=== PATIENT | male | born 1940 | race Caucasian/White ===

== ENCOUNTER 2017-07-26 08:57 | Day surgery (SDC) | payer MEDICARE, BC ==
[2017-07-26] MEDS ORDERED: ALLOPURINOL TAB 300 (10:11)
[2017-07-26] MEDS ORDERED: NORVASC5 MG PO (10:12)
[2017-07-26] MEDS ORDERED: ISOSORBIDE MONO30 M1 PO (10:12)
[2017-07-26] MEDS ORDERED: FENOFIBRATE160 MG PO (10:13)
[2017-07-26] MEDS ORDERED: LASIX20 MG PO (10:13)
[2017-07-26] MEDS ORDERED: ASPIRIN81 MG PO (10:14)
[2017-07-26] MEDS ORDERED: METOPROLOL TART25 MG PO (10:14)
[2017-07-26] MEDS ORDERED: ELIQUIS5 MG PO (10:14)
[2017-07-26] MEDS ORDERED: PROSCAR5 MG PO (10:15)
[2017-07-26] MEDS ORDERED: PRAVACHOL80 MG PO (10:15)
[2017-07-26] MEDS ORDERED: KLOR-CON M1515 MEQ PO (10:16)
[2017-07-26] MEDS ORDERED: FLUTICASONE PRO16 GM NASAL (10:16)
[2017-07-26] MEDS ORDERED: MUCINEX600 MG PO (10:16)
[2017-07-26] MEDS ORDERED: RANEXA1000 MG PO (10:16)
[2017-07-26] MEDS ORDERED: TRIGLIDE (10:17)
[2017-07-26] MEDS ORDERED: NOVOLOG INJ FLE (10:17)
[2017-07-26] MEDS ORDERED: LEVEMIR INJ FLE (10:17)
[2017-07-26 10:20] VITALS: BP 119/93; BMI 32.0
[2017-07-26 10:45] LABS: BASOPHILS 0.2 % (0-2); EOSINOPHILS 2.2 % (0-7); HEMATOCRIT 40.8 % (42.0-54.0); HEMOGLOBIN 12.9 g/dL (13.5-17.5); IMMATURE GRANULOCYTES 0.6 % (0-5); LYMPHOCYTES 11.7 % (15-50); MCH 32.8 pg (26.0-34.0); MCHC 31.6 g/dL (31.0-37.0); MCV 103.8 fL (80.0-100.0); MONOCYTES 4.8 % (2-11); NEUTROPHILS 80.5 % (40-80); PLATELET COUNT 267 10x3/uL (130-400); RBC 3.93 10x6/uL (4.20-6.10); RDW 14.1 % (11.5-14.5); WBC 9.1 10x3/uL (4.8-10.8)
[2017-07-26 10:56] LABS: ANION GAP 15.4 mmol/L (8-16); CALCIUM 9.1 mg/dL (8.5-10.1); CARBON DIOXIDE 27.2 mmol/L (21.0-32.0); CREATININE - SERUM 1.6 mg/dL (0.6-1.3); POTASSIUM - SERUM 4.6 mmol/L (3.5-5.1)
--- NOTE | 2017-07-26 14:40 | NUR ---
IV D/C'D CATH INTACT.
--- NOTE | 2017-07-26 14:40 | NUR ---
D/C INSTRUCTIONS EXPLAINED TO PT. VOICED UNDERSTANDING. COPIES OF ALL GIVEN TO PT.
--- NOTE | 2017-07-26 14:55 | NUR ---
D/C'D HOME VIA W/C TO PRIVATE CAR.
--- NOTE | 2017-08-04 14:40 | OP ---
PATIENT NAME: AMRITA RODRIGUES MEDICAL RECORD: [id number] :44 LOCATION:[facility] ADMISSION DATE: SURGEON: REI GOSS DO DATE OF OPERATION: 07/26/2017 PROCEDURE: Colonoscopy with polypectomy. INDICATIONS FOR PROCEDURE: Positive stool with DNA based colorectal cancer screening. SCOPE: That{img} video pediatric colonoscope. MEDICATIONS: Propofol 650 mg IV per anesthesia. WITHDRAWAL TIME: 18 minutes. ESTIMATED BLOOD LOSS: Minimal. COMPLICATIONS: None. FINDINGS: Informed consent was given. The patient was made comfortable with the above medication. After reaching an adequate level of sedation by slow IV push, the patient was placed on his left side. Digital rectal examination was performed and was normal other than some benign prostatic hyperplasia. The endoscope was then advanced under direct visualization through the rectum to the cecum with visualization of the appendiceal orifice and ileocecal valve. The scope was slowly withdrawn and the mucosa was carefully examined. The prep quality was good on the left side of the colon, but inadequate on the right side of the colon. It is possible that small lesions could have been missed. There were no large polyps or obvious masses visualized. In the ascending colon, there were 2 polyps, which were benign-appearing and sessile in nature. They measured approximately 5-7 mm in diameter. They were both removed using a hot snare in 1 piece and completely retrieved. In the transverse colon, there were 3 separate polyps, which were benign-appearing and sessile. They ranged in size from 4-9 mm in diameter. They were all removed using a hot snare in 1 piece and completely retrieved. In the descending colon, there were two benign-appearing sessile polyps, which ranged in size from 5-8 mm in diameter. They were both removed using a hot snare in 1 piece and completely retrieved. Retroflexion was performed in the rectum with visualization of small to medium sized internal hemorrhoids, which were not bleeding. The endoscope was withdrawn from the patient. The patient tolerated the procedure well and there were no complications. IMPRESSION: 1. Internal hemorrhoids. 2. Multiple polyps as described as above. All polyps were removed using a hot snare and completely retrieved. 3. Inadequate prep. PLAN AND RECOMMENDATIONS: 1. Discharge home when recovery parameters are met. 2. Follow up biopsy specimen results. 3. Recall colonoscopy in 1 year with a split prep to be performed. 4. High fiber diet. 5. Continue current medications. OPERATIVE REPORT [id number] AMRITA RODRIGUES TRANSINT:[id number] Voice Confirmation ID: [id number] DOCUMENT ID: [id number] REI GOSS DO at 1440 CC: [id number] DICTATION DATE: 07/26/17 1345 OUTREACH NURSE: 07/26/17 1415 [facility] [place] 07/26/17 [id number] [place] [address]
== END 2017-07-26 15:03 | disposition home or self-care (01) ==
LOC: D.OPS 08:57
PROVIDERS: Anesthesiology
DX: K63.5 Polyp of colon (principal); K64.8 Other hemorrhoids; I25.10 Atherosclerotic heart disease of native coronary artery without angina pectoris; I10 Essential (primary) hypertension; E11.9 Type 2 diabetes mellitus without complications; I50.9 Heart failure, unspecified; Z95.1 Presence of aortocoronary bypass graft; Z95.5 Presence of coronary angioplasty implant and graft; Z01.812 Encounter for preprocedural laboratory examination

== ENCOUNTER 2019-01-27 18:32 | Inpatient (IN) | payer MEDICARE, BC ==
[~2019-01-27] VITALS: Ht 172.7 cm; Wt 92.5 kg
[~2019-01-27 18:32] MED LIST: ALLOPURINOL TAB 300; ASPIRIN81 MG PO; ELIQUIS5 MG PO; FENOFIBRATE160 MG PO; FLUTICASONE PRO16 GM NASAL; ISOSORBIDE MONO30 M1 PO; KLOR-CON M1515 MEQ PO; LASIX20 MG PO; LEVEMIR INJ FLE; METOPROLOL TART25 MG PO; MUCINEX600 MG PO; NORVASC5 MG PO; NOVOLOG INJ FLE; PRAVACHOL80 MG PO; PROSCAR5 MG PO; RANEXA1000 MG PO; TRIGLIDE
[2019-01-27] MEDS ORDERED: LOTENSIN 10 MG10 MG PO (18:42)
[2019-01-27] MEDS ORDERED: CRESTOR20 MG PO (18:43)
[2019-01-27] MEDS ORDERED: NITROSTAT0.4 MG SL (18:43)
[2019-01-27] MEDS ORDERED: KLOR-CON 1010 MEQ PO (18:44)
[2019-01-27] MEDS ORDERED: NORVASC5 MG PO (18:44)
[2019-01-27 19:13] LABS: BASOPHILS 0.2 % (0-2); EOSINOPHILS 0.7 % (0-7); HEMATOCRIT 39.3 % (42.0-54.0); HEMOGLOBIN 12.9 g/dL (13.5-17.5); IMMATURE GRANULOCYTES 0.5 % (0-5); LYMPHOCYTES 5.8 % (15-50); MCH 33.1 pg (26.0-34.0); MCHC 32.8 g/dL (31.0-37.0); MCV 100.8 fL (80.0-100.0); MEAN PLATELET VOLUME 9.7 fL (7.4-10.4); NEUTROPHILS 87.8 % (40-80); PLATELET COUNT 272 10x3/uL (130-400); RDW 13.6 % (11.5-14.5); WBC 12.2 10x3/uL (4.8-10.8)
[2019-01-27 19:26] LABS: ALBUMIN 3.2 g/dL (3.4-5.0); ANION GAP 12.4 mmol/L (8-16); APTT 38.9 SECONDS (22.8-39.4); BILIRUBIN - TOTAL 0.56 mg/dL (0.2-1.3); CALCIUM 9.1 mg/dL (8.5-10.1); CARBON DIOXIDE 27.4 mmol/L (21.0-32.0); CREATININE - SERUM 1.7 mg/dL (0.6-1.3); INR 1.45 (0.85-1.17); POTASSIUM - SERUM 4.8 mmol/L (3.5-5.1); PROTEIN - SERUM 7.4 g/dL (6.4-8.2); PROTIME 17.1 SECONDS (11.6-15.0)
[2019-01-27 23:24] VITALS: BP 125/68; BMI 31.0
[2019-01-28 09:06] VITALS: BP 133/53
[2019-01-28 11:25] LABS: BASOPHILS 0.1 % (0-2); EOSINOPHILS 0.3 % (0-7); HEMATOCRIT 35.7 % (42.0-54.0); HEMOGLOBIN 11.8 g/dL (13.5-17.5); IMMATURE GRANULOCYTES 0.2 % (0-5); LYMPHOCYTES 5.1 % (15-50); MCH 33.1 pg (26.0-34.0); MCHC 33.1 g/dL (31.0-37.0); MCV 100.3 fL (80.0-100.0); MEAN PLATELET VOLUME 9.2 fL (7.4-10.4); MONOCYTES 4.5 % (2-11); NEUTROPHILS 89.8 % (40-80); PLATELET COUNT 230 10x3/uL (130-400); RBC 3.56 10x6/uL (4.20-6.10); RDW 13.7 % (11.5-14.5); WBC 14.6 10x3/uL (4.8-10.8)
[2019-01-28 11:38] LABS: ALBUMIN 3.1 g/dL (3.4-5.0); ANION GAP 10.7 mmol/L (8-16); BILIRUBIN - TOTAL 0.66 mg/dL (0.2-1.3); CALCIUM 8.8 mg/dL (8.5-10.1); CARBON DIOXIDE 28.3 mmol/L (21.0-32.0); CREATININE - SERUM 1.8 mg/dL (0.6-1.3); PROTEIN - SERUM 7.1 g/dL (6.4-8.2)
[2019-01-28 12:52] LABS: % SATURATION 12 % (15-55); IRON 42 ug/dl (35-150); TOTAL IRON BIND CAPACITY 335 ug/dl (260-445); UNSAT IRON BIND CAPACITY 293 ug/dl (150-375)
[2019-01-28 12:58] LABS: CKMB 1.1 U/L (0.0-3.6); CREATINE KINASE 155 UL (21-232)
[2019-01-28 13:01] LABS: TROPONIN-I < 0.017 ng/mL (0.000-0.060)
[2019-01-28 13:01] LABS: APPEARANCE CLOUDY (CLEAR); BILIRUBIN NEGATIVE (NEGATIVE); COLOR YELLOW (YELLOW); GLUCOSE 1000 mg/dL (NEGATIVE); KETONE NEGATIVE (NEGATIVE); NITRITE NEGATIVE (NEGATIVE); PROTEIN TRACE mg/dL (NEGATIVE); UROBILINOGEN NORMAL (NORMAL)
[2019-01-28 13:02] LABS: EPITHELIAL CELLS 0-5 /hpf (0-5); RED CELLS - URINE >50 /hpf (0-5); WHITE CELLS - URINE 0-5 /hpf (0-5)
[2019-01-28 15:17] VITALS: Ht 172.7 cm; Wt 92.5 kg
[2019-01-28 16:24] VITALS: BP 130/62
[2019-01-28 20:25] VITALS: BP 133/60
[2019-01-29 03:41] VITALS: BP 140/80
[2019-01-29 05:15] LABS: BASOPHILS 0.2 % (0-2); EOSINOPHILS 2.8 % (0-7); HEMATOCRIT 36.2 % (42.0-54.0); HEMOGLOBIN 11.6 g/dL (13.5-17.5); IMMATURE GRANULOCYTES 0.3 % (0-5); LYMPHOCYTES 8.1 % (15-50); MCH 32.1 pg (26.0-34.0); MCV 100.3 fL (80.0-100.0); MEAN PLATELET VOLUME 9.7 fL (7.4-10.4); MONOCYTES 7.4 % (2-11); NEUTROPHILS 81.2 % (40-80); PLATELET COUNT 239 10x3/uL (130-400); RBC 3.61 10x6/uL (4.20-6.10); RDW 13.9 % (11.5-14.5); WBC 13.1 10x3/uL (4.8-10.8)
[2019-01-29 07:43] LABS: CALC OSMOLALITY 294 mosm/kg (275-300); CARBON DIOXIDE 25.2 mmol/L (21.0-32.0); CHLORIDE - SERUM 106 mmol/L (98-107); CKMB 0.8 U/L (0.0-3.6); CREATINE KINASE 158 UL (21-232); CREATININE - SERUM 1.6 mg/dL (0.6-1.3); GLUCOSE 233 mg/dL (74-106); POTASSIUM - SERUM 4.7 mmol/L (3.5-5.1); SODIUM 140 mmol/L (136-145); UREA NITROGEN 37 mg/dL (7-18); eGFR NON AFRICAN AMERICAN 45 mL/min (90-120)
[2019-01-29 09:08] VITALS: BP 120/55
[2019-01-29 13:36] VITALS: BP 144/65
[2019-01-29 18:14] VITALS: BP 141/64
[2019-01-29 19:50] VITALS: BP 147/81
[2019-01-30 04:28] VITALS: BP 109/53
[2019-01-30 06:32] LABS: BASOPHILS 0.1 % (0-2); EOSINOPHILS 3.7 % (0-7); HEMATOCRIT 33.1 % (42.0-54.0); HEMOGLOBIN 10.6 g/dL (13.5-17.5); IMMATURE GRANULOCYTES 0.4 % (0-5); LYMPHOCYTES 9.2 % (15-50); MCH 32.6 pg (26.0-34.0); MCV 101.8 fL (80.0-100.0); MEAN PLATELET VOLUME 9.8 fL (7.4-10.4); MONOCYTES 8.9 % (2-11); NEUTROPHILS 77.7 % (40-80); PLATELET COUNT 212 10x3/uL (130-400); RBC 3.25 10x6/uL (4.20-6.10); RDW 14.2 % (11.5-14.5); WBC 10.3 10x3/uL (4.8-10.8)
[2019-01-30 06:58] LABS: CALC OSMOLALITY 298 mosm/kg (275-300); CALCIUM 8.2 mg/dL (8.5-10.1); CARBON DIOXIDE 29.3 mmol/L (21.0-32.0); CHLORIDE - SERUM 108 mmol/L (98-107); CKMB 0.6 U/L (0.0-3.6); CREATINE KINASE 89 UL (21-232); CREATININE - SERUM 1.4 mg/dL (0.6-1.3); GLUCOSE 232 mg/dL (74-106); POTASSIUM - SERUM 4.7 mmol/L (3.5-5.1); SODIUM 143 mmol/L (136-145); TROPONIN-I 0.025 ng/mL (0.000-0.060); UREA NITROGEN 31 mg/dL (7-18); eGFR NON AFRICAN AMERICAN 52 mL/min (90-120)
[2019-01-30 09:01] VITALS: BP 100/58
[2019-01-30 12:57] VITALS: BP 121/67
[2019-01-30 16:38] VITALS: BP 116/59
[2019-01-30 20:00] VITALS: BP 123/69
[2019-01-31 04:00] VITALS: BP 126/65
[2019-01-31 05:40] LABS: BASOPHILS 0.1 % (0-2); HEMOGLOBIN 10.5 g/dL (13.5-17.5); IMMATURE GRANULOCYTES 0.4 % (0-5); LYMPHOCYTES 7.7 % (15-50); MCH 32.4 pg (26.0-34.0); MCHC 31.8 g/dL (31.0-37.0); MCV 101.9 fL (80.0-100.0); MONOCYTES 5.3 % (2-11); NEUTROPHILS 83.5 % (40-80); PLATELET COUNT 210 10x3/uL (130-400); RBC 3.24 10x6/uL (4.20-6.10); WBC 11.3 10x3/uL (4.8-10.8)
[2019-01-31 05:48] LABS: ANION GAP 8.7 mmol/L (8-16); CALCIUM 8.2 mg/dL (8.5-10.1); CARBON DIOXIDE 28.8 mmol/L (21.0-32.0); CREATININE - SERUM 1.4 mg/dL (0.6-1.3); POTASSIUM - SERUM 4.5 mmol/L (3.5-5.1)
[2019-01-31 09:34] VITALS: BP 117/66
[2019-01-31 13:38] VITALS: BP 114/76
[2019-01-31 18:14] VITALS: BP 118/66
[2019-01-31 22:01] VITALS: BP 106/63
[2019-02-01 05:21] VITALS: BP 107/63
[2019-02-01 06:48] LABS: BASOPHILS 0.1 % (0-2); EOSINOPHILS 3.3 % (0-7); HEMATOCRIT 32.7 % (42.0-54.0); HEMOGLOBIN 10.5 g/dL (13.5-17.5); IMMATURE GRANULOCYTES 0.4 % (0-5); LYMPHOCYTES 8.6 % (15-50); MCH 32.5 pg (26.0-34.0); MCHC 32.1 g/dL (31.0-37.0); MCV 101.2 fL (80.0-100.0); MEAN PLATELET VOLUME 9.9 fL (7.4-10.4); MONOCYTES 5.7 % (2-11); NEUTROPHILS 81.9 % (40-80); PLATELET COUNT 237 10x3/uL (130-400); RBC 3.23 10x6/uL (4.20-6.10); RDW 13.9 % (11.5-14.5); WBC 10.3 10x3/uL (4.8-10.8)
[2019-02-01 07:07] LABS: ANION GAP 10.9 mmol/L (8-16); CALCIUM 8.5 mg/dL (8.5-10.1); CARBON DIOXIDE 28.6 mmol/L (21.0-32.0); CREATININE - SERUM 1.2 mg/dL (0.6-1.3); POTASSIUM - SERUM 4.5 mmol/L (3.5-5.1)
[2019-02-01 09:37] VITALS: BP 110/73
[2019-02-01 14:03] VITALS: BP 140/84
--- NOTE | 2019-02-01 14:39 | CN ---
PATIENT NAME:AMRITA MILLS MEDICAL RECORD: [id number] : 44 LOCATION:[facility] [address] ADMIT DATE: 01/28/19 ACCOUNT: [id number] CONSULTING PHYSICIAN: CONOR JOSE MD REFERRING PHYSICIAN: PEGGY BETANCOURT MD DATE OF CONSULTATION: 01/29/2019 CARDIOLOGY CONSULT DIAGNOSES: 1. Syncope. 2. Coronary artery disease. 3. Previous PTCA and stent in [place]. 4. Cardiomyopathy. 5. Atrial fibrillation. 6. Anticoagulation with Eliquis. 7. Hypertension. 8. Orthostasis. HISTORY: Mr. Mills has been having episodes where he fell out. He fell down a flight of stairs on this admission. 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 He has had no anginal symptomatology. He has a history of atrial fibrillation; however, he has maintained sinus rhythm now. He was on Eliquis for the atrial fibrillation. We did an echocardiogram. His ejection fraction is in the 35% range with left atrial enlargement. Most likely, this is not new. He thinks that he has been told that his heart function is decreased in the past. He is not having heart failure symptomatology and not having any anginal symptomatology. PHYSICAL EXAMINATION: GENERAL APPEARANCE: Well-nourished, well-developed, appears stated age. Level of distress, comfortable. PSYCHIATRIC: Mental status, alert, normal affect. Orientation, oriented to time, place and person. EYES: Lids and conjunctiva, noninjected. No discharge, no pallor. ENT: Lips, teeth, gums, normal dentition. Oropharynx, no cyanosis, no pallor. NECK: Carotid arteries, bilateral normal upstroke, no bruits, no thrills. JUGULAR VEINS: No jugular venous pressure or distention. CERVICAL LYMPH NODES: Nontender, nonenlarged. THYROID: Not enlarged. Nontender. No nodules. LUNGS: Respiratory effort, unlabored. CHEST: Normal curvature. No thoracic deformity. No chest wall tenderness. Percussion, resonant. Auscultation, clear. No wheezes, no rales, no rhonchi. CARDIOVASCULAR: Precordial exam, nondisplaced. No heaves or pericardial thrills. Rate and rhythm, regular. Heart sounds, normal S1, normal S2. No S3, no gallop, no rub. Systolic murmur, not heard. Diastolic murmur, not heard. EXTREMITIES: No cyanosis, no edema. Peripheral pulses, full and equal in all extremities, except as noted. No bruits appreciated. ABDOMEN: Soft, nondistended. Normal aorta. No bruit. Nontender. No masses. Liver, nontender, no hepatomegaly. Spleen, nontender, no splenomegaly. MUSCULOSKELETAL: No joint tenderness. No joint swelling. No erythema. NEUROLOGICAL: Normal gait, normal strength, normal tone. SKIN: Warm and dry. OVERALL IMPRESSION: CONSULT REPORT [id number] AMRITA MILLS 1. Atrial fibrillation. He has maintained sinus rhythm on his current medications. This is stable. 2. Cardiomyopathy. This does not appear to be new. He is not in heart failure. This appears to be stable. 3. Coronary artery disease with previous PTCA and stent. No ST-T changes on his EKG. No anginal symptomatology. This as well appears to be stable. No other cardiac treatment or workup is necessary at this time. TRANSINT:[id number] Voice Confirmation ID: [id number] DOCUMENT ID: [id number] CONOR JOSE MD at 1439 CC: [id number] DICTATION DATE: 01/29/19 1212 HEALTH MANAGER: 01/29/19 1334 [place] [address]
--- NOTE | 2019-02-01 14:39 | EC ---
PATIENT:AMRITA RODRIGUES DATE OF SERVICE: 01/28/19 SEX: M MEDICAL RECORD: [id number] DATE OF : 44 LOCATION:D[facility] [address] AGE OF PATIENT: 79 ADMISSION DATE: 01/28/19 REFERRING PHYSICIAN: INTERPRETING PHYSICIAN: CONOR BAILON MD ECHOCARDIOGRAM REPORT ECHO CHARGES 4 ECHO COMPLETE Date: 01/29/19 CLINICAL DIAGNOSIS: SYNCOPE ECHOCARDIOGRAPHIC MEASUREMENTS (adult normal given) AC root (d.<3.7cm) 2.9 cm LV Septum d (<1.2 cm> 1.3 cm Valve Excursion 1.6 cm LV Septum (systole) 1.6 cm Left Atria (s.<4.0cm> 3.6 cm LVPW d(<1.2cm) 1.1 cm RV (d.<2.3cm) 3.8 cm LVPW (sytole) 1.5 cm LV diastole(<5.6CM) 4.8 cm MV E-F(>70mm/sec) cm LV systole 3.7 cm LVOT Diameter 1.7 cm MV exc.(>10mm) cm Est.ejection fraction (50-75%) % DOPPLER: LVIT cm/sec A cm/sec E 103 cm/sec LA cm/sec RVSP 29.8 mmHg LVOT 79 cm/sec AOP1/2T m/s Asc. Ao 124 cm/sec RVOT 87 cm/sec RA cm/sec PA 97 cm/sec AV Gradient Peak 6.2 mmHg AV Mean 3.7 mmHg AV Area 1.6 cm MV Gradient Peak 8.2 mmHg MV Mean 4.3 mmHg MV Area cm COMMENTS: Package Designer: [facility] Manager Quality: Ruthie Bailon TAPE# PACS Pericardial Effusion N DATE OF SERVICE: 01/29/2019 FINDINGS: 1. Left ventricular chamber size is within normal limits. Left ventricular systolic function is moderately depressed. Overall ejection fraction is 30% to 35%. 2. Left atrium, right atrium, and right ventricle chamber sizes are within normal limit. 3. Valvular structures have normal structure and motion. 4. Doppler interrogation reveals trace tricuspid regurgitation. No other ECHOCARDIOGRAM REPORT [id number] AMRITA RODRIGUES valvular insufficiency or stenosis. Pulmonary systolic pressure is normal, estimated at 30 mmHg. 5. No evidence of pericardial effusion or left ventricular thrombus. TRANSINT:[id number] Voice Confirmation ID: [id number] DOCUMENT ID: [id number] CONOR BAILON MD at 1439 CC: [id number] DICTATION DATE: 01/29/19 1327 ARTIST REPRESENTATIVE: 01/29/19 192 ADM IN [facility] [address] [place] [address]
[2019-02-01 17:07] VITALS: BP 114/67
[2019-02-01 20:00] VITALS: BP 101/74
[2019-02-02 04:00] VITALS: BP 118/58
[2019-02-02 04:09] LABS: BASOPHILS 0.1 % (0-2); EOSINOPHILS 2.9 % (0-7); HEMATOCRIT 33.7 % (42.0-54.0); HEMOGLOBIN 10.9 g/dL (13.5-17.5); IMMATURE GRANULOCYTES 0.4 % (0-5); LYMPHOCYTES 9.1 % (15-50); MCH 32.7 pg (26.0-34.0); MCHC 32.3 g/dL (31.0-37.0); MCV 101.2 fL (80.0-100.0); MEAN PLATELET VOLUME 9.7 fL (7.4-10.4); MONOCYTES 5.7 % (2-11); NEUTROPHILS 81.8 % (40-80); PLATELET COUNT 248 10x3/uL (130-400); RBC 3.33 10x6/uL (4.20-6.10); RDW 13.9 % (11.5-14.5); WBC 10.5 10x3/uL (4.8-10.8)
[2019-02-02 04:24] LABS: ANION GAP 9.9 mmol/L (8-16); CALCIUM 8.9 mg/dL (8.5-10.1); CARBON DIOXIDE 31.5 mmol/L (21.0-32.0); CREATININE - SERUM 1.1 mg/dL (0.6-1.3); POTASSIUM - SERUM 4.4 mmol/L (3.5-5.1)
[2019-02-02 08:45] VITALS: BP 135/66
[2019-02-02] MEDS ORDERED: FLORAJEN3 CAPS460 MG PO (11:13)
[2019-02-02] MEDS ORDERED: MECLIZINE HCL25 MG PO (11:13)
[2019-02-02] MEDS ORDERED: MIRALAX17 GM PO (11:13)
[2019-02-02] MEDS ORDERED: NORCO-7.5 PO (11:13)
[2019-02-02] MEDS ORDERED: MUCINEX600 MG PO (11:13)
[2019-02-02] MEDS ORDERED: TESSALON PERLE100 MG PO (11:13)
[2019-02-02] MEDS ORDERED: HUMULIN R100 U/ML SC (11:14)
[2019-02-02] MEDS ORDERED: ZOFRAN ODT4 MG/UDTAB PO (11:14)
[2019-02-02] MEDS ORDERED: PROTONIX40 MG PO (11:14)
[2019-02-02] MEDS ORDERED: ACETAMINOPHEN325 MG PO (11:15)
[2019-02-02] MEDS ORDERED: LEVAQUIN750 MG PO (11:15)
--- NOTE | 2019-02-02 11:29 | MORECARE ---
CASE MANAGEMENT DISCHARGE SUMMARY PATIENT: AMRITA RODRIGUES UNIT: [id number] ADM DATE: 01/28/19 AGE: 79 : 42 SEX: M ROOM/BED: D.2220 AUTHOR: HERMAN TANG PHYSICIAN: REFERRING PHYSICIAN: PEGGY BETANCOURT MD DATE OF SERVICE: 02/02/19 Discharge Plan Patient Name: AMRITA RODRIGUES Facility: [facility]:[place] : 1940 Planned Disposition: Inpatient Rehab Anticipated Discharge Date: Discharge Date: Expected LOS: Initial Reviewer: [email or web address] Initial Review Date: 01/27/2019 Generated: 02/02/19 12:29 pm DCPIA - Discharge Planning Initial Assessment Updated by [email or web address]: Annetta Vides on 02/02/19 11:27 am * Is the patient Alert and Oriented? Yes * How many steps to enter\exit or inside your home? UPSTAIRS * PCP SAMANTHA * [facility] * Preadmission Environment Home with Family * ADLs Independent * Equipment Bedside Commode Cane Oxygen Rolling Walker Walker Wheelchair * List name and contact numbers for known caregivers / representatives who currently or will assist patient after discharge: GUMARO () [phone] * Verbal permission to speak to the caregivers and representatives has been obtained from the patient. N/A * Community resources currently utilized None * Additional services required to return to the preadmission environment? Yes * Can the patient safely return to the preadmission environment? No * Has this patient been hospitalized within the prior 30 days at any hospital? No Coverage Notice Reviewer: [email or web address] - Annetta Vides Notice Issued Date-Time: 02/02/2019 9:30 Notice Type: IM Discharge Notice Notice Delivered To: Patient Relationship to Patient: Scrap Piler Name: Delivery Method: HAND - Hand Delivered Soraida Days: Prior Verbal Notification: Recipient Understood Notice: Yes Recipient Signature: Yes Med Rec Note Co-signed by Attending: Coverage Notice Comment: Patient Name: AMRITA RODRIGUES Page 41315 at 1129 All edits/amendments must be made on the electronic document DICTATION DATE: 02/02/191127 ENGINEERING EXECUTIVE: MICHELL 02/02/191127 RPT#: [id number] DC DATE: STATUS: ADM IN [facility] [address] [place] [address] END OF REPORT
--- NOTE | 2019-02-02 11:43 | MORECARE ---
CASE MANAGEMENT DISCHARGE SUMMARY PATIENT: AMRITA RODRIGUES UNIT: [id number] ADM DATE: 01/28/19 AGE: 79 : 42 SEX: M ROOM/BED: D.2220 AUTHOR: CLYDEDOC PHYSICIAN: REFERRING PHYSICIAN: PEGGY BETANCOURT MD DATE OF SERVICE: 02/02/19 Discharge Plan Patient Name: AMRITA RODRIGUES Facility: [facility]:[place] : 1940 Planned Disposition: Inpatient Rehab Anticipated Discharge Date: Discharge Date: Expected LOS: Initial Reviewer: [email or web address] Initial Review Date: 01/27/2019 Generated: 02/02/19 12:43 pm Comments DCP- Discharge Planning Updated by [email or web address]: Annetta Vides on 02/02/19 10:[address] Patient Name: AMRITA RODRIGUES Admission Status: ER Accout number: [id number] Admission Date: 01-28-2019 : 1940 Admission Diagnosis:OTHER INJURY OF UNSPECIFIED BODY REGION, INITIAL ENCOUN Attending: PEGGY BETANCOURT Current LOS: 5 Anticipated DC Date: Planned Disposition: Inpatient Rehab Primary Insurance: MEDICARE A & B Discharge Planning Comments: CM met with patient to assess discharge planning needs. Patient lives independent with his . At discharge the patient plans to go to inpatient rehab. He has BSC, cane, walker, has access to a wheelchair, [facility]. There are stairs in their home, but he will not be using them anymore. IMM served and explained. Patient will be discharging to inpatient rehab today. CM to follow and assist as needed Deboning Team Leader: Annetta Vides DCPIA - Discharge Planning Initial Assessment Updated by [id number]: Annetta Vides on 02/02/19 11:27 am * Is the patient Alert and Oriented? Yes * How many steps to enter\exit or inside your home? UPSTAIRS * PCP SAMANTHA * Pharm[facility] * Preadmission Environment Home with Family * ADLs Independent * Equipment Bedside Commode Cane Oxygen Rolling Walker Walker Wheelchair * List name and contact numbers for known caregivers / representatives who currently or will assist patient after discharge: GUMARO () [phone] * Verbal permission to speak to the caregivers and representatives has been obtained from the patient. N/A * Community resources currently utilized None * Additional services required to return to the preadmission environment? Yes * Can the patient safely return to the preadmission environment? No * Has this patient been hospitalized within the prior 30 days at any hospital? No Coverage Notice Reviewer: [id number] Dora Vides Notice Issued Date-Time: 02/02/2019 9:30 Notice Type: IM Discharge Notice Notice Delivered To: Patient Relationship to Patient: Business Intelligence Consultant Name: Delivery Method: HAND - Hand Delivered Soraida Days: Prior Verbal Notification: Recipient Understood Notice: Yes Recipient Signature: Yes Med Rec Note Co-signed by Attending: Coverage Notice Comment: Last DP export: 02/02/19 10:29 a Patient Name: AMRITA RODRIGUES Page 32875 at 1143 All edits/amendments must be made on the electronic document DICTATION DATE: 02/02/19 114 MARKETING RECRUITER: MICHELL 02/02/19 1142 RPT#: [id number] DC DATE: STATUS: ADM IN [facility] [address] [place] [address] END OF REPORT
[2019-02-02 12:45] VITALS: BP 121/59
== END 2019-02-02 14:57 | disposition home or self-care (01) | DRG 85 ==
LOC: D.ER 18:32 → OBSVTIME 21:41 → D.MS 21:41 → D.EDHOLD 21:41 → D.MS 21:59 → D.SDCHOLD 01-31 13:41 → D.MS 01-31 13:45
PROVIDERS: Emergency Medicine; ADMIT Internal Medicine Nephrology; ATTEND Internal Medicine Nephrology
PROC: 0HQ0XZZ Repair Scalp Skin, External Approach (ICD-10-PCS; principal; 2019-01-27)
DX: S06.9X1A Unspecified intracranial injury with loss of consciousness of 30 minutes or less, initial encounter (principal); J96.21 Acute and chronic respiratory failure with hypoxia; J18.9 Pneumonia, unspecified organism; S42.302A Unspecified fracture of shaft of humerus, left arm, initial encounter for closed fracture; D68.59 Other primary thrombophilia; N17.9 Acute kidney failure, unspecified; S01.01XA Laceration without foreign body of scalp, initial encounter; W19.XXXA Unspecified fall, initial encounter; D64.9 Anemia, unspecified; I12.9 Hypertensive chronic kidney disease with stage 1 through stage 4 chronic kidney disease, or unspecified chronic kidney disease; E11.22 Type 2 diabetes mellitus with diabetic chronic kidney disease; N18.9 Chronic kidney disease, unspecified; J61 Pneumoconiosis due to asbestos and other mineral fibers

== ENCOUNTER 2019-02-02 16:16 | Inpatient (IN) | payer MEDICARE, BC ==
[~2019-02-02] VITALS: Ht 172.7 cm; Wt 92.5 kg
--- NOTE | ~2019-02-02 | RHP ---
PATIENT: AMRITA RODRIGUES MEDICAL RECORD: [id number] ACCOUNT: [id number] LOCATION:[facility]1117 : 44 ADMISSION DATE: 02/02/19 REHABILITATION HISTORY AND PHYSICAL EXAMINATION POST ADMISSION PHYSICIAN EXAMINATION DATE OF ADMISSION: 02/02/2019 ADMITTING DIAGNOSIS: Closed injury to the head with loss of consciousness. HISTORY OF PRESENT ILLNESS: The patient is admitted to inpatient rehab for traumatic brain injury, which was closed. He apparently fell down some stairs, had lost consciousness. He presented to ED on 01/27/2019, after falling at home down a flight of stairs. He did state he did not really recall how the accident ever happened, just remembers waking up in a pool of blood. He is on anticoagulation therapy, Eliquis for atrial fib. He sustained a left frontal scalp hematoma, laceration to his forehead and was found to have a fracture of his left humerus and several bruises. He complained of nausea, vomiting, and dizziness every time he sat up and had an MRI of his head, which showed no acute abnormalities. He does have history of diabetes, hypertension, coronary artery disease, COPD with home O2 use, arthritis, prostate problems. He has had an orthopedic surgeon consult and has opted for no surgical intervention at this time. He is in a sling. He is on telemetry, showed sinus tachycardia with first degree block, some AFib and atrial flutter at times. He is on supplemental O2. He has got immobility secondary to his left upper extremity sling and proximal humeral fracture with impaction. He is having problems with pain, immobilization some dizziness, vertigo and nausea at times, elevated temperature. He has been hypoxic. He is on Lovenox for anticoagulation therapy and has a history of AFib, was on Eliquis prior to the fall. These are all barriers to his discharge. At this time he lives at home with his and independent with his mobility and ADLs. He is currently setup for max assist for ADLs, mod-to-max to total assist with his mobility. He and his would plan for him to return home at his prior level of function or possibly better if possible. COMORBIDITIES: In this patient include syncope with fall, left frontal scalp hematoma, gait disturbance, hypercoagulopathy, hematuria, diabetes, hypertension, coronary artery disease, asbestosis, bilateral lower lobe pneumonia and atrial fib. PAST MEDICAL HISTORY: Significant for atrial fib, vertigo, tingling, glasses, neuropathy, diabetes, hypertension, stents, coronary artery bypass grafting, COPD, home O2 dependence, asbestosis, arthritis, skin cancers and prostate problems. PAST SURGICAL HISTORY: Includes back surgery times 2, carpal tunnel release, heart surgery times 2. He has had a stone removed from his eye, and some surgery on his foot, arm and extremities. ALLERGIES: TETRACYCLINE. CURRENT MEDICATIONS: Include potassium 10 mEq daily, MiraLax 17 gm in 8 ounces of water daily, Protonix 40 mg daily. He is on Levaquin 750 mg daily. He is on Floranex 460 daily, furosemide 20 mg daily. He is on Flonase nasal spray daily, benazepril 5 mg daily, aspirin 81 mg daily, Crestor 20 mg at bedtime, Ranexa HISTORY AND PHYSICAL [id number] RAVI,AMRITA 1000 mg b.i.d., Zofran 4 mg every 6 hours p.r.n., Carleton 7.5/325 one tab every 4 hours p.r.n., Nitrostat p.r.n. chest pain, metoprolol 25 mg b.i.d., Antivert 25 mg t.i.d. p.r.n. He is on intermittent resistant sliding scale with Humulin, Mucinex 1200 mg b.i.d., Proscar 5 mg at bedtime, Tessalon Perles 100 mg t.i.d., Eliquis 5 mg b.i.d., and Tylenol 650 mg every 6 hours p.r.n. HABITS: No alcohol or tobacco use. FAMILY HISTORY: Noncontributory. SOCIAL HISTORY: The patient hopes to return back home with his and get back to his prior level of functioning. REVIEW OF SYSTEMS: GENERAL: He does complain of weakness and fatigue. HEENT: Denies cold, cough, or congestion. CARDIOVASCULAR: Denies chest pain. PHYSICAL EXAMINATION: VITAL SIGNS: Stable, afebrile. GENERAL: An elderly gentleman in no acute distress, alert upon exam. HEENT: Normocephalic. He does have areas to his head from his fall. TMs appear shiny and mobile. NECK: Supple, otherwise. LUNGS: Clear at this time. No wheezing, rhonchi or rales. HEART: Irregular rate and rhythm. No murmurs, rubs or gallops. ABDOMEN: Benign. EXTREMITIES: No clubbing, cyanosis or edema. NEUROLOGIC: He does have noted proximal muscle weakness. LABORATORY DATA: White count is 10.7, H&H of 10.9 and 33.4 and platelet count is noted to be 255. His MCV is elevated at 101.5. Sodium 143, potassium 4.3, BUN and creatinine of 32 and 1.4 and blood sugar is noted to be 179. ASSESSMENT: This is a 79-year-old gentleman admitted to the rehab with a working diagnosis of closed head injury secondary to a fall and loss of consciousness. The patient has potential to make improvement. We instituted the following multidisciplinary therapies include, but not limited to physical, occupational, respiratory, speech, nutritional services, prosthetics and orthotics. Given his complex medical condition and risk for more complications, rehabilitation services cannot be provided at a low level of care such a skilled nurse facility. PLAN: 1. Admit to [facility] for intensive inpatient therapy to include the following disciplines: A. Physical therapy to improve gait, all transfer skills and bed mobility to a modified independent level. B. Occupational therapy to a modified independent level. C. Case management to assist with discharge planning and placement options. D. Nutrition to assist with nutritional needs. E. Rehabilitation nursing to assist in monitoring the patient's underlying medical conditions and to assist with any type of bowel or bladder management. 2. The patient's current medication and medical care will be continued. 3. The patient will be placed on standard fall precautions. HISTORY AND PHYSICAL [id number] AMRITA RODRIGUES 4. The patient's estimated length of stay is approximately 7-10 days. 5. I will discuss this patient during care team staff meeting this week. TRANSINT:[id number] Voice Confirmation ID: [id number] DOCUMENT ID: [id number] DENNIS notes whether there has been none or any medical/functional change since admission: - No change since pre-admission screen. DENNIS attests patient continues to be appropriate for IRF: - Continues to be appropriate. SASHA BRUCE MD CC: [id number] DICTATION DATE: 02/03/19 0840 DISH UP PERSON: 02/03/19 1024 ADM IN [facility] [address] [place] [address]
[~2019-02-02 16:16] MED LIST changes: +ACETAMINOPHEN325 MG PO; +CRESTOR20 MG PO; +FLORAJEN3 CAPS460 MG PO; +HUMULIN R100 U/ML SC; +KLOR-CON 1010 MEQ PO; +LEVAQUIN750 MG PO; +LOTENSIN 10 MG10 MG PO; +MECLIZINE HCL25 MG PO; +MIRALAX17 GM PO; +NITROSTAT0.4 MG SL; +NORCO-7.5 PO; +PROTONIX40 MG PO; +TESSALON PERLE100 MG PO; +ZOFRAN ODT4 MG/UDTAB PO
[2019-02-02 17:03] VITALS: BP 124/56; BMI 31.0
[2019-02-02 19:48] VITALS: BP 111/58
--- NOTE | 2019-02-02 19:50 | NUR ---
PT LYING IN BED WATCHING TV. CALL LIGHT IN REACH. DENIES NEEDS OR PAIN AT THIS TIME. BED IN LOW. SIDE RAILS X2. RESP EVEN AND UNLABORED. LEFT ARM IN SLING. A/O X4. BOWEL ACTIVE X4. LUNGS CLEAR. TAKES MEDS WHOLE. USES URINAL. WILL CONTINUE TO MONITOR.
--- NOTE | 2019-02-03 00:29 | NUR ---
I have reviewed this patient and I concur with the Shift Assessment completed by the Licensed Practical Nurse today this shift.
--- NOTE | 2019-02-03 01:21 | NUR ---
PT RESTING QUIETLY IN BED. CALL LIGHT IN REACH. NO SIGNS OF DISTRESS OR PAIN. WCTM
[2019-02-03 05:54] LABS: BASOPHILS 0.1 % (0-2); HEMATOCRIT 33.4 % (42.0-54.0); HEMOGLOBIN 10.9 g/dL (13.5-17.5); IMMATURE GRANULOCYTES 0.3 % (0-5); LYMPHOCYTES 7.6 % (15-50); MCH 33.1 pg (26.0-34.0); MCHC 32.6 g/dL (31.0-37.0); MCV 101.5 fL (80.0-100.0); MEAN PLATELET VOLUME 9.7 fL (7.4-10.4); MONOCYTES 6.6 % (2-11); NEUTROPHILS 82.4 % (40-80); PLATELET COUNT 255 10x3/uL (130-400); RBC 3.29 10x6/uL (4.20-6.10); RDW 13.9 % (11.5-14.5); WBC 10.7 10x3/uL (4.8-10.8)
--- NOTE | 2019-02-03 06:06 | NUR ---
PT LYING IN BED. CALL LIGHT IN REACH. DENIES NEEDS AT THIS TIME. MORNING MEDS GIVEN. WCTM
[2019-02-03 06:11] LABS: ANION GAP 7.6 mmol/L (8-16); CALCIUM 8.8 mg/dL (8.5-10.1); CARBON DIOXIDE 33.7 mmol/L (21.0-32.0); POTASSIUM - SERUM 4.3 mmol/L (3.5-5.1)
[2019-02-03 06:12] LABS: CREATININE - SERUM 1.4 mg/dL (0.6-1.3)
--- NOTE | 2019-02-03 07:14 | NUR ---
RESTING QUIETLY IN BED, EYES CLOSED. OXYGEN IN PLACE. LUE IN SLING. RESP EFFORT NON LABORED. SIDE RAILS UP X2. CALL LIGHT IN BED WITH PT
[2019-02-03 08:14] VITALS: BP 109/61
[2019-02-03 09:06] VITALS: Ht 172.7 cm; Wt 92.5 kg
--- NOTE | 2019-02-03 10:18 | NUR ---
SITTING UP IN BED WATCHING TV. DENIES NEEDS. CALL LIGHT IN REACH.
--- NOTE | 2019-02-03 14:39 | NUR ---
SITTING UP IN WC IN ROOM. DENIES NEEDS OR C/O. CALL LIGHT IN REACH
--- NOTE | 2019-02-03 19:18 | NUR ---
PATIENT IS RESTING IN HIS BED WATCHING TV. HIS SPOUSE IS AT BEDSIDE. HE DENIES ANY NEEDS. BED IS DOWN LOW WITH SIDE RAILS UP X2. CALL LIGHT IS IN REACH.
[2019-02-03 21:00] VITALS: BP 111/65
--- NOTE | 2019-02-03 22:40 | NUR ---
PT IS RESTING QUIETLY IN BED WITH EYES CLOSED. RESPS ARE EVEN AND UNLABORED. NO ACUTE DISTRESS NOTED.
--- NOTE | 2019-02-04 01:15 | NUR ---
RESTING IN BED WITH EYES CLOSED.
--- NOTE | 2019-02-04 04:56 | NUR ---
RESTING IN BED WITH EYES CLOSED.
[2019-02-04 08:00] VITALS: BP 106/55
--- NOTE | 2019-02-04 08:00 | NUR ---
SHIFT ASSMT COMPLETED.LEFT ARM IN SLING.TOP OF HEAD SUTURES INTACT.BREAKFAST GIVEN
--- NOTE | 2019-02-04 12:00 | NUR ---
SITTING UP EATING.DENIES NEEDS.
--- NOTE | 2019-02-04 19:39 | NUR ---
PT IS RESTING IN RECLINER IN HIS ROOM. ALERT AND ORIENTED X 3. DENIES NEEDS AT THIS TIME. VISITOR AND SPOUSE IN ROOM. LEFT ARM IS IN A SLING. SCALP INCISION IS CDI. NO DRAINAGE NOTED. CALL LIGHT AND BEDSIDE TABLE ARE WITHIN EASY REACH.
[2019-02-04 20:15] VITALS: BP 142/78
--- NOTE | 2019-02-04 22:16 | NUR ---
PT IS RESTING QUIETLY IN BED WITH EYES CLOSED. RESPS ARE EVEN AND UNLABORED. NO ACUTE DISTRESS NOTED.
--- NOTE | 2019-02-05 00:27 | NUR ---
RESTING IN BED WITH EYES CLOSED AND RESPIRATIONS UNLABORED. NO DISTRESS NOTED. CALL LIGHT IN REACH.
--- NOTE | 2019-02-05 04:05 | NUR ---
RESTING IN BED WITH EYES CLOSED.
[2019-02-05 08:00] VITALS: BP 118/65
--- NOTE | 2019-02-05 08:00 | NUR ---
SHIFT ASSMT COMPLETED.
--- NOTE | 2019-02-05 19:44 | NUR ---
PT IS RESTING IN BED WITH EYES OPEN. ALERT AND ORIENTED X 3. DENIES ACUTE PAIN OR DISCOMFORT AT THIS TIME. LEFT ARM SLING IS ON AND INTACT. PT STATES HE HAS NO PAIN, EXCEPT WHEN HE MOVES IT. SR'S ARE UP X 2 IN BED. CALL LIGHT AND BEDSIDE TABLE ARE WITHIN EASY REACH.
[2019-02-05 20:00] VITALS: BP 126/66
--- NOTE | 2019-02-05 23:11 | NUR ---
RESTING QUIETLY IN BED WITH EYES CLOSED.
--- NOTE | 2019-02-06 02:44 | NUR ---
CONTINUES RESTING IN BED WITH NO DISTRESS NOTED. CALL LIGHT IN REACH.
[2019-02-06 07:01] LABS: ANION GAP 4.6 mmol/L (8-16); CALCIUM 8.7 mg/dL (8.5-10.1); CARBON DIOXIDE 38.4 mmol/L (21.0-32.0); CREATININE - SERUM 1.3 mg/dL (0.6-1.3)
[2019-02-06 07:03] LABS: BASOPHILS 0.2 % (0-2); HEMATOCRIT 33.8 % (42.0-54.0); HEMOGLOBIN 10.5 g/dL (13.5-17.5); IMMATURE GRANULOCYTES 0.5 % (0-5); LYMPHOCYTES 8.8 % (15-50); MCH 32.1 pg (26.0-34.0); MCHC 31.1 g/dL (31.0-37.0); MCV 103.4 fL (80.0-100.0); MEAN PLATELET VOLUME 9.7 fL (7.4-10.4); MONOCYTES 6.4 % (2-11); NEUTROPHILS 81.1 % (40-80); PLATELET COUNT 275 10x3/uL (130-400); RBC 3.27 10x6/uL (4.20-6.10); RDW 13.8 % (11.5-14.5); WBC 10.5 10x3/uL (4.8-10.8)
--- NOTE | 2019-02-06 07:35 | NUR ---
RESTING QUIETLY IN BED, EYES CLOSED. NO S/S DISTRESS. LUE IN SLING. CALL LIGHT IN REACH. IN ROOM WITH PT.
[2019-02-06 07:55] VITALS: BP 119/65
--- NOTE | 2019-02-06 11:19 | NUR ---
SITTING UP IN WC IN ROOM. DENIES NEEDS
--- NOTE | 2019-02-06 11:31 | NUR ---
PATIENT ADMITTED TO REHAB FROM ACUTE FLOOR. DR. SINGH IS HIS PCP. DME AT HOME IS CANE, WALKER, BEDSIDE COMMODE, WHEELCHAIR AND HOME O2 WHICH [facility] IS THE PROVIDER. DISCHARGE PLANS ARE FOR HIM TO RETURN HOME AT DISCHARGE. WILL CONTINUE TO FOLLOW WITH PATIENT.
--- NOTE | 2019-02-06 13:46 | NUR ---
Nutrition Follow Up: Chart reviewed Diet: ADA PO Intake: 92% meal avg BM: 02/05/19 Labs reviewed - Glucose elevated Meds noted including Humulin, Lasix Rec continue current diet. RD following.
[2019-02-06 19:00] VITALS: BP 113/55
--- NOTE | 2019-02-06 19:50 | NUR ---
PT IS RESTING IN RECLINER WITH EYES OPEN. ALERT AND ORIENTED X 3. DENIES ANY PAIN OR DISCOMFORT AT THIS TIME. NO NEEDS VOICED. O2 IS ON @ 2LPM PER NC. NO SOB NOTED. SPOUSE IS IN ROOM WITH PT. CALL LIGHT AND BEDSIDE TABLE ARE WITHIN EASY REACH.
--- NOTE | 2019-02-06 22:18 | NUR ---
PT IS RESTING QUIETLY IN BED WITH EYES CLOSED. RESPS ARE EVEN AND UNLABORED. NO ACUTE DISTRESS NOTED.
--- NOTE | 2019-02-07 01:38 | NUR ---
RESTING IN BED WITH EYES CLOSED.
--- NOTE | 2019-02-07 04:21 | NUR ---
PT IN BED LOW POSITION, EYES CLOSED, NO NEEDS NOTED, FLUIDS AND CALL LIGHT WITHIN REACH
--- NOTE | 2019-02-07 07:51 | NUR ---
SITTING UP IN RECLINER TALKING TO . C/O NOT SLEEPING WELL LAST PM AND NOW BEING SLEEPY. LUE IN SLING. CALL LIGHT IN REACH
[2019-02-07 08:16] VITALS: BP 123/61
--- NOTE | 2019-02-07 11:46 | NUR ---
SITTING IN RECLINER IN ROOM. LUE IN SLING. HAS MINIMAL MOVEMENT WITHOUT INCREASED PAIN. ALL FINGER HAVE IMMEDIATE CAP REFILL. IN ROOM WITH PT.
--- NOTE | 2019-02-07 16:17 | NUR ---
RESTING QUIETLY IN BED, EYES CLOSED. NO S/S DISTRESS OR NEEDS. CALL LIGHT IN REACH
[2019-02-07 19:00] VITALS: BP 120/56
--- NOTE | 2019-02-07 19:13 | NUR ---
PT SITTING UP IN RECLINER, AT BEDSIDE, PT REQUESTED AND SERVED FRESH H20, ALSO PROVIDED TO , INFORMED PT THAT I WILL BE BACK SHORTLY TO DO ASSESSMENT AND ADM MEDS, PT VERBALIZES UNDERSTANDING, DENIES FURTHER NEEDS
--- NOTE | 2019-02-07 21:29 | NUR ---
PT'S JUST GOT HIM INTO BED, ASSESSMENT PER FLOW SHEET, OBTAINED FSBS, ADM 2100 MEDS PER MD ORDERS, SEE EMAR, PT DENIES FURTHER NEEDS BED IN LOW POSITION, SIDE RAILS X 2, CALL LIGTH IN REACH
--- NOTE | 2019-02-07 22:40 | NUR ---
PT IN BED LOW POSITION, EYES CLOSED, AROUSES TO VOICE EASILY, NO NEEDS NOTED, FLUIDS AND CALL LIGHT WITHIN REACH
--- NOTE | 2019-02-08 00:33 | NUR ---
PT RESTING WITH EYES CLOSED, RESP QUIET, NO DISTRESS NOTED, LEFT UNDISTURBED AT THIS TIME, BED IN LOW POSITION, SIDE RAILS X 2, CALL LIGHT IN REACH, PT'S ASLEEP IN THE OTHER BED
--- NOTE | 2019-02-08 02:12 | NUR ---
PT AWAKE, PT UP IN RECLINER AT THIS TIME, REPORTS THAT THE BED IS TOO UNCOMFORTABLE, WILL CONTINUE TO TRY AND GET AN EGG CRATE FOR HIS BED, PT DENIES NEEDS OR PAIN AT THIS TIME, EMPTIED 125 MLS OF DARK YELLOW URINE FROM URINAL, PTS AT SIDE
--- NOTE | 2019-02-08 06:29 | NUR ---
PT AWAKE, LAB JUST FINISHED WITH AM BLOOD DRAW, OBTAINED FSBS, ADM 0600 MED PER MD ORDERS, SEE EMAR, DENIES NEEDS OR PAIN AT THIS TIME
[2019-02-08 07:36] LABS: ANION GAP 8.7 mmol/L (8-16); CALCIUM 9.1 mg/dL (8.5-10.1); CARBON DIOXIDE 34.9 mmol/L (21.0-32.0); CREATININE - SERUM 1.2 mg/dL (0.6-1.3); POTASSIUM - SERUM 4.6 mmol/L (3.5-5.1)
[2019-02-08 07:40] LABS: BASOPHILS 0.2 % (0-2); EOSINOPHILS 3.3 % (0-7); HEMATOCRIT 31.3 % (42.0-54.0); HEMOGLOBIN 9.8 g/dL (13.5-17.5); IMMATURE GRANULOCYTES 0.4 % (0-5); LYMPHOCYTES 8.1 % (15-50); MCH 32.1 pg (26.0-34.0); MCHC 31.3 g/dL (31.0-37.0); MCV 102.6 fL (80.0-100.0); MEAN PLATELET VOLUME 9.7 fL (7.4-10.4); MONOCYTES 7.4 % (2-11); NEUTROPHILS 80.6 % (40-80); PLATELET COUNT 264 10x3/uL (130-400); RBC 3.05 10x6/uL (4.20-6.10); RDW 13.7 % (11.5-14.5); WBC 9.4 10x3/uL (4.8-10.8)
[2019-02-08 08:00] VITALS: BP 109/73
--- NOTE | 2019-02-08 08:00 | NUR ---
SHIFT ASSMT COMPLETED.
--- NOTE | 2019-02-08 16:13 | NUR ---
CO CHEST PAIN LASTING A MIN.VITAL SIGNS CHECKED.STATED HE THOUGHT IT WAS FROM THE LARGE BRUISE ON HIS LEFT CHEST.NO CO SOB OR DIZZIENESS,NUMBNESS OR TINGLING.VSS.PULSE OX.97%.LAB NOTIFIED.
[2019-02-08 16:45] VITALS: BP 131/79
--- NOTE | 2019-02-08 17:30 | NUR ---
1ST SET OF LAB AND EKG WNL.
[2019-02-08 17:46] LABS: CKMB 0.5 U/L (0.0-3.6); CREATINE KINASE 42 UL (21-232); TROPONIN-I < 0.017 ng/mL (0.000-0.060)
[2019-02-08 19:00] VITALS: BP 145/73
--- NOTE | 2019-02-08 19:07 | NUR ---
PATIENT IS SITTING IN RECLINING CHAIR AND HIS IS AT HIS SIDE. CALL LIGHT IS IN REACH.
[2019-02-08 23:19] LABS: CKMB 0.6 U/L (0.0-3.6); CREATINE KINASE 46 UL (21-232); TROPONIN-I < 0.017 ng/mL (0.000-0.060)
--- NOTE | 2019-02-09 00:06 | NUR ---
PATIENT IS SLEEPING. SPOUSE IS AT BEDSIDE. CALL LIGHT IS IN REACH.
--- NOTE | 2019-02-09 08:00 | NUR ---
SHIFT ASSMT COMPLETED.LEFT ARM SLIGHT EDEMA;REMAINS IN SLING.UP IN CHAIR.BREAKFAST GIVEN.
[2019-02-09 08:01] LABS: CKMB 0.5 U/L (0.0-3.6); CREATINE KINASE 41 UL (21-232); TROPONIN-I < 0.017 ng/mL (0.000-0.060)
[2019-02-09 08:12] VITALS: BP 125/71
--- NOTE | 2019-02-09 12:00 | NUR ---
SITTING UP EATING LUNCH.CL IN REACH.
--- NOTE | 2019-02-09 19:09 | NUR ---
PATIENT IS RESTING IN CHAIR AT SIDE OF HIS BED. HE DENIES ANY NEEDS. CALL LIGHT IS IN REACH.
[2019-02-09 19:25] VITALS: BP 119/62
--- NOTE | 2019-02-10 00:04 | NUR ---
PATIENT IS SLEEPING. BED IS DOWN LOW WITH SIDE RAILS UP X2. CALL LIGHT IS IN REACH. PATIENT'S SPOUSE IS AT BEDSIDE.
--- NOTE | 2019-02-10 04:05 | NUR ---
PATIENT IS RESTING IN HIS BED WITH EYES CLOSED. APPEARS TO BE SLEEPING. BED IS DOWN LOW WITH SIDE RAILS UP X2. CALL LIGHT IS IN REACH AND SPOUSE IS AT BEDSIDE.
[2019-02-10 07:10] LABS: CALCIUM 8.9 mg/dL (8.5-10.1); CARBON DIOXIDE 34.5 mmol/L (21.0-32.0); CREATININE - SERUM 1.1 mg/dL (0.6-1.3); POTASSIUM - SERUM 4.5 mmol/L (3.5-5.1)
[2019-02-10 07:17] LABS: BASOPHILS 0.1 % (0-2); EOSINOPHILS 3.9 % (0-7); HEMATOCRIT 30.7 % (42.0-54.0); HEMOGLOBIN 9.5 g/dL (13.5-17.5); IMMATURE GRANULOCYTES 0.5 % (0-5); MCH 31.5 pg (26.0-34.0); MCHC 30.9 g/dL (31.0-37.0); MCV 101.7 fL (80.0-100.0); MEAN PLATELET VOLUME 9.5 fL (7.4-10.4); MONOCYTES 7.4 % (2-11); NEUTROPHILS 79.1 % (40-80); PLATELET COUNT 258 10x3/uL (130-400); RBC 3.02 10x6/uL (4.20-6.10); RDW 13.5 % (11.5-14.5); WBC 8.7 10x3/uL (4.8-10.8)
[2019-02-10 07:33] VITALS: BP 126/67
--- NOTE | 2019-02-10 08:09 | NUR ---
SITTING UP RECLINER FOR BREAKFAST. LUE IN SLING. DENIES PAIN OR NEEDS. IN ROOM.
--- NOTE | 2019-02-10 09:55 | NUR ---
PATIENT DISCHARGING HOME WITH FAMILY TODAY. PATIENT AT THIS TIME DECLINES HOME HEALTH. [facility] WILL DELIVER A SHOWER CHAIR TO PATIENT.DR. SINGH 02/16/19 @ 11:30, DR. REESE 02/21/19 @ 1:30. PAITENT CHOICE FORM AND [facility] FORMS SIGNED, COPY GIVEN TO PATIENT AND FILED IN CHART. DISCHARGE INSTRUCTIONS WITH [facility] FAXED TO PCP AND REVIEWED WITH PATIENT.
[2019-02-10] MEDS ORDERED: ISOSORBIDE MONO30 M1 PO (10:44)
[2019-02-10] MEDS ORDERED: BAYER CHEWABLE81 MG PO (10:44)
[2019-02-10] MEDS ORDERED: LUNESTA2 M1 PO (10:45)
--- NOTE | 2019-02-10 12:38 | NUR ---
LEFT FLOOR IN WC. WITH PT. TOOK ALL PERSONAL ITEMS WITH HIM. MEDS CALLED INTO [facility] IN [place]. REVIEWED MEDS. FALL RISK, DC PLAN WITH PT AND . NO QUESTIONS ASKED. LUE IN SLING.
== END 2019-02-10 12:12 | disposition home or self-care (01) | DRG 949 ==
LOC: D.REHAB 16:16
PROVIDERS: ADMIT Emergency Medicine; ATTEND Emergency Medicine
DX: S06.9X9D Unspecified intracranial injury with loss of consciousness of unspecified duration, subsequent encounter (principal); J18.9 Pneumonia, unspecified organism; J96.21 Acute and chronic respiratory failure with hypoxia; D68.59 Other primary thrombophilia; R55 Syncope and collapse; W10.9XXD Fall (on) (from) unspecified stairs and steps, subsequent encounter; R26.9 Unspecified abnormalities of gait and mobility; S00.03XD Contusion of scalp, subsequent encounter; E11.9 Type 2 diabetes mellitus without complications; I10 Essential (primary) hypertension; I48.91 Unspecified atrial fibrillation; R31.9 Hematuria, unspecified; J44.9 Chronic obstructive pulmonary disease, unspecified; I25.10 Atherosclerotic heart disease of native coronary artery without angina pectoris; D64.9 Anemia, unspecified